=== PATIENT | female | born 1935 | race Two or more races ===

== ENCOUNTER 2018-08-24 16:23 | Emergency (ER) | payer MEDICARE, MEDICAID ==
[~2018-08-24] VITALS: Ht 157.5 cm; Wt 77.1 kg
[~2018-08-24 16:23] MED LIST: AMLO-61 PO; BENA20TA9 PO; DIPH12.56 PO; GLIM2TAB2 PO; Insulin Glargine,Hum.rec.anlog SQ; SIMV20TA2 PO; [UNRECOGNIZED DRUG - CODE] PO
--- NOTE | 2018-08-24 16:30 | NUR ---
PATIENT BIB DAUGHTER C/O NECK AND LEFT UPPER PAIN.
--- NOTE | 2018-08-24 16:52 | NUR ---
PATIENT SEEN BY DR. HARRIS FOR EVAL.
[2018-08-24] MEDS ORDERED: MORPHINE SULFATE INJ 2 MG/ML DISP.SYRIN IV ONE ×2 (17:00→18:30)
[2018-08-24] MEDS ORDERED: MORPHINE SULFATE INJ 4 MG/ML DISP.SYRIN ONE ×2 (17:00→18:25)
--- NOTE | 2018-08-24 17:04 | NUR ---
IV INSERTED ON LEFT AC G20
[2018-08-24 17:20] LABS: BASOPHILS % (AUTO) 0.4 % (0.0-2.0); EOSINOPHILS % (AUTO) 0.3 % (0.0-6.0); HEMATOCRIT 38 % (33-45); HEMOGLOBIN 12.4 g/dL (11.5-14.8); LYMPHOCYTES # (AUTO) 2.6 /CMM (0.8-4.8); LYMPHOCYTES % (AUTO) 27.9 % (20.0-44.0); MEAN CORPUSCULAR HGB CONC 33 g/dl (31.0-36.0); MEAN CORPUSCULAR VOLUME 79 fL (82-100); MONOCYTES # (AUTO) 0.7 /CMM (0.1-1.30); MONOCYTES % (AUTO) 7.7 % (2.0-12.0); NEUTROPHILS # (AUTO) 5.9 /CMM (1.8-8.9); NEUTROPHILS % (AUTO) 63.7 % (43.0-81.0); PLATELET COUNT (AUTO) 301 /CMM (150-450); RED BLOOD CELL COUNT(AUTO) 4.76 MIL/uL (4.0-5.2); WHITE BLOOD COUNT (AUTO) 9.2 K/uL (4.3-11.0)
[2018-08-24 17:32] LABS: CALCIUM, SERUM 9.4 mg/dL (8.5-10.1); CARBON DIOXIDE 26 mmol/L (21-32); CHLORIDE 104 mmol/L (98-107); CREATININE 0.7 mg/dL (0.6-1.3); GLUCOSE 133 mg/dL (74-106); POTASSIUM 4.2 mmol/L (3.5-5.1); SODIUM SERUM 141 mmol/L (136-145); UREA NITROGEN, BLOOD 16 mg/dL (7-18)
[2018-08-24] MEDS ORDERED: KETOROLAC TROMETHAMINE INJ 30 MG/ML VIAL ONE (18:25)
[2018-08-24] MEDS ORDERED: KETOROLAC TROMETHAMINE INJ 30 MG/ML VIAL IV ONE (18:30)
--- NOTE | 2018-08-24 19:28 | NUR ---
ENDORSED TO MATERIALS ASSOCIATE RN FOR ROGERIO SAAVEDRA.
[2018-08-24 19:52] VITALS: BP 163/77
--- NOTE | 2018-08-24 19:54 | NUR ---
Patient discharged to home in stable condition. Written and verbal after care instructions given. Patient & family verbalizes understanding of instruction. Patient's family member is at bedside and will take her back home. Patient left facility on foot with steady slow gait. No s/s of acute distress or sob noted. Addendum: 08/24/18 at 1956 by AMY iv access on LAC removed and secured with gauze and tape. No signs of bleeding noted.
== END 2018-08-24 19:53 | disposition home or self-care (01) ==
LOC: ER 16:26
DX: M54.2 Cervicalgia (principal); I10 Essential (primary) hypertension; E11.9 Type 2 diabetes mellitus without complications; Z88.1 Allergy status to other antibiotic agents; Z87.891 Personal history of nicotine dependence; Z79.4 Long term (current) use of insulin
CPT/HCPCS: 36415; 70490-TC; 71045-TC; 80048-TC; 84484-TC; 85025-TC; A4606; J1885; J2270; Z7610